=== PATIENT | male | born 1960 | race Caucasian/White ===

== ENCOUNTER 2019-02-24 13:28 | Emergency (ER) | payer OTHER ==
[~2019-02-24] VITALS: Ht 188 cm; Wt 99.8 kg
[~2019-02-24 13:28] MED LIST: CLEOCIN HCL300 MG PO; COLACE 100 MG100 MG PO; DARVOCET-N 1001 EACH PO; MEDROLDOSEPACK PO; NOHOMEMEDICATIONS; NORCO 5-325 TA1 EACH PO; PERCOCET 5-3251 EACH PO
[2019-02-24 13:38] VITALS: BP 160/80
== END 2019-02-24 13:59 | disposition home or self-care (01) ==
LOC: M.ERS 13:28
DX: H92.01 Otalgia, right ear (principal); F17.210 Nicotine dependence, cigarettes, uncomplicated; Z86.14 Personal history of Methicillin resistant Staphylococcus aureus infection

== ENCOUNTER 2020-10-12 17:41 | Emergency (ER) | payer OTHER, MEDICAID ==
[~2020-10-12] VITALS: Ht 188 cm; Wt 93.0 kg
[2020-10-12 18:30] VITALS: BP 138/82
[2020-10-12] MEDS ORDERED: BACTRIM DS TAB1 EACH PO (18:30)
[2020-10-12] MEDS ORDERED: KEFLEX500 M1 PO (18:30)
== END 2020-10-12 18:30 | disposition home or self-care (01) ==
LOC: M.ERS 17:41
DX: U07.1 COVID-19 (principal); L03.113 Cellulitis of right upper limb; Z86.14 Personal history of Methicillin resistant Staphylococcus aureus infection

== ENCOUNTER 2020-10-14 10:10 | Emergency (ER) | payer OTHER, MEDICAID ==
[~2020-10-14] VITALS: Ht 188 cm; Wt 93.0 kg
[~2020-10-14 10:10] MED LIST changes: +BACTRIM DS TAB1 EACH PO; +KEFLEX500 M1 PO
[2020-10-14 11:51] LABS: ABSOLUTE BASOPHILS 0.1 thou/uL (0.0-0.2); ABSOLUTE LYMPHOCYTES 0.9 thou/uL (0.8-5.3); ABSOLUTE MONOCYTES 0.8 thou/uL (0.0-1.2); ABSOLUTE NEUTROPHILS 3.8 thou/uL (1.6-8.1); BASOPHILS 1.1 %; EOSINOPHILS 0.1 %; HEMATOCRIT 49.8 % (42.0-52.0); HEMOGLOBIN 16.9 gm/dL (14.0-18.0); LYMPHOCYTES 15.4 %; MCH 30.8 pg (26.0-34.0); MCHC 33.8 g/dL (28.0-37.0); MONOCYTES 14.5 %; MPV 8.2 fl. (7.2-11.1); NUCLEATED RBCS 0 /100WBC; PLATELET COUNT* 209 thou/uL (150-400); POLYS 68.9 %; RBC 5.48 mil/uL (4.50-6.00); RDW-CV 12.5 % (10.5-14.5); WBC 5.5 thou/uL (4.0-11.0)
[2020-10-14 12:03] LABS: CALCIUM 8.6 mg/dL (8.5-10.1); CREATININE 1.2 mg/dL (0.6-1.3); POTASSIUM 3.5 mmol/L (3.5-5.1)
[2020-10-14 12:19] LABS: ALBUMIN 3.3 g/dL (3.4-5.0); MAGNESIUM 2.3 mg/dL (1.8-2.4); TOTAL BILIRUBIN 0.9 mg/dL (<0.1-1.0); TOTAL PROTEIN 8.3 g/dL (6.4-8.2)
[2020-10-14 13:01] LABS: URINE BLOOD NEGATIVE (Negative); URINE CLARITY CLEAR; URINE COLOR YELLOW; URINE GLUCOSE-RANDOM TRACE (Negative); URINE KETONES TRACE (Negative); URINE LEUKOCYTES-REFLEX NEGATIVE (Negative); URINE NITRITE-REFLEX NEGATIVE (Negative); URINE PROTEIN 3+ (Negative); URINE SPECIFIC GRAVITY >= 1.030 (1.005-1.030); URINE UROBILINOGEN >= 8.0 E.U./dl (0.2-1.0)
[2020-10-14 13:03] LABS: ICTOTEST (BILI CONFIRMATORY) Positive (Negative); URINE BILIRUBIN 1+ (Negative)
[2020-10-14 13:10] LABS: AMP/METHAMP Negative (Negative); BARBITURATES Negative (Negative); BENZODIAZEPINES Negative (Negative); COCAINE Negative (Negative); METHADONE Negative (Negative); OPIATES POSITIVE (Negative); PCP Negative (Negative); THC Negative (Negative)
[2020-10-14 13:18] LABS: BACTERIA-REFLEX 1-9 Few /HPF (None Seen); CRYSTALS None Seen /LPF (None Seen); HYALINE CASTS 4-10 Moderate /LPF (None Seen); MUCUS 0-3 Light strn/LPF (None Seen); SQUAMOUS 4-10 Moderate /LPF (0-3); URINE RBC 0-2 Rare /HPF (0-2); URINE WBC-REFLEX 0-5 Rare /HPF (0-5)
[2020-10-14] MEDS ORDERED: TORADOL 10 MG T10 MG PO (14:27)
[2020-10-14] MEDS ORDERED: ULTRAM 50MG TAB50 MG PO (14:27)
[2020-10-14 14:47] VITALS: BP 144/91
== END 2020-10-14 14:47 | disposition home or self-care (01) ==
LOC: M.ERS 10:10
PROVIDERS: Personal Emergency Response Attendant
DX: L02.413 Cutaneous abscess of right upper limb (principal); F17.210 Nicotine dependence, cigarettes, uncomplicated; Z86.14 Personal history of Methicillin resistant Staphylococcus aureus infection; Z79.899 Other long term (current) drug therapy

== ENCOUNTER 2020-10-16 09:04 | Emergency (ER) | payer OTHER, MEDICAID ==
[~2020-10-16] VITALS: Ht 188 cm; Wt 90.7 kg
[~2020-10-16 09:04] MED LIST changes: +TORADOL 10 MG T10 MG PO; +ULTRAM 50MG TAB50 MG PO
[2020-10-16 09:12] VITALS: BP 150/89
== END 2020-10-16 10:13 | disposition home or self-care (01) ==
LOC: M.ERS 09:04
DX: Z48.01 Encounter for change or removal of surgical wound dressing (principal); F17.210 Nicotine dependence, cigarettes, uncomplicated; Z86.14 Personal history of Methicillin resistant Staphylococcus aureus infection